=== PATIENT | male | born 1990 | race Caucasian/White ===

== ENCOUNTER 2022-11-08 19:13 | Emergency (ER) | payer MEDICAID ==
[~2022-11-08] VITALS: Ht 180.3 cm; Wt 95.0 kg
[2022-11-08 23:30] VITALS: BP 118/76
== END 2022-11-08 23:37 | disposition home or self-care (01) ==
LOC: ER 19:13
DX: F10.129 Alcohol abuse with intoxication, unspecified (principal); Y90.0 Blood alcohol level of less than 20 mg/100 ml; J45.909 Unspecified asthma, uncomplicated
CPT/HCPCS: 99283

== ENCOUNTER 2023-06-15 09:54 | Emergency (ER) | payer MEDICAID ==
[~2023-06-15] VITALS: Ht 182.9 cm; Wt 137.0 kg
[2023-06-15] MEDS ORDERED: METHYLPREDNISOLONE SOD SUCC 125MG/2ML (ACT-O-VIAL) IV STA (10:26)
[2023-06-15] MEDS ORDERED: IPRATROPIUM BROMIDE (0.02%) 0.5MG/2.5ML NEB HHN STA (10:26)
[2023-06-15] MEDS ORDERED: MAGNESIUM 2 G PREMIX 50 ML IV ONE (10:30)
[2023-06-15 10:54] LABS: BASOPHILS % 1.3 % (0.0-2.0); EOSINOPHILS % 5.7 % (0.0-5.0); HEMATOCRIT. 46.1 % (42.0-52.0); HEMOGLOBIN. 15.8 g/dL (14.0-18.0); LYMPHOCYTES % 39.1 % (20.0-50.0); MEAN CORPUSCULAR HEMOGLOBIN 32.1 pg (28.0-32.0); MEAN CORPUSCULAR HGB CONC 34.2 g/dL (31.0-37.0); MEAN CORPUSCULAR VOLUME 93.8 fL (80.0-94.0); MEAN PLATELET VOLUME 6.9 fl (7.4-10.4); MONOCYTES % 8.7 % (2.0-8.0); NEUTROPHILS % 45.2 % (40.0-76.0); PLATELET 312 x1000/uL (130-400); RED BLOOD CELL COUNT 4.92 mill/uL (4.7-6.1); WHITE BLOOD COUNT 5.5 x1000/uL (4.5-11.0)
[2023-06-15 11:08] LABS: CHLORIDE 104 mEq/L (98-107); INDEX HEMOLYSI 1 (1-3); INDEX ICTERIC 1 (1-4); INDEX LIPEMIC 1 (1-3); POTASSIUM 3.2 mEq/L (3.5-5.1); SODIUM 140 mEq/L (136-145)
[2023-06-15 11:18] LABS: ALANINE AMINOTRANSFERASE 28 IU/L (13-61); ALBUMIN 3.6 g/dL (3.4-5.0); ASPARTATE AMINOTRANSFERASE 59 IU/L (15-37); BILIRUBIN TOTAL 0.8 mg/dL (0.1-1.0); CALCIUM 7.9 mg/dL (8.5-10.1); CARBON DIOXIDE 29 mEq/L (21-32); CREATININE 0.9 mg/dL (0.6-1.3); GLUCOSE 97 mg/dL (70-105); PROTEIN TOTAL 7.3 g/dL (6.0-8.3); UREA NITROGEN BLOOD 14 mg/dL (7-21)
[2023-06-15 11:45] VITALS: PULSE 80; RESP 20; O2SAT 95
[2023-06-15] MEDS: ALBUTEROL (0.083%) 2.5MG/3ML NEB HHN SCH ×2 (11:45→12:01)
[2023-06-15] MEDS ORDERED: POTASSIUM CHLORIDE 20MEQ/PACKET PO ONE (11:45)
[2023-06-15] MEDS ORDERED: ALBUTEROL (0.083%) 2.5MG/3ML NEB HHN ONE (13:15)
[2023-06-15 15:16] VITALS: BP 138/61; PULSE 78; RESP 18; TEMP 98
== END 2023-06-15 15:14 | disposition left against medical advice (07) ==
LOC: ER 09:54 → MICUSO 20:14 → UNDOADMIN 20:14 → UNDODISIN 06-16 09:01
DX: J45.901 Unspecified asthma with (acute) exacerbation (principal); J98.11 Atelectasis
CPT/HCPCS: 80053; 85025; 36415; 71045; 94644; 96365; 96375; 99285; J3475; J2930; Z7610 ×5